=== PATIENT | male | born 1965 | race Caucasian/White ===

== ENCOUNTER 2016-12-22 23:06 | Emergency (ER) | payer SELFPAY ==
[2016-12-22] MEDS ORDERED: Aspirin 81 MG Tab.Chew PO ONE (23:14)
--- NOTE | 2016-12-22 23:37 | EDM.PDOC ---
ED HPI GENERAL MEDICAL PROBLEM - General Chief Complaint: Chest Pain Stated Complaint: CHEST PAIN Time Seen by Provider: 12/22/16 23:33 - History of Present Illness INITIAL COMMENTS - FREE TEXT/NARRATIVE: HISTORY AND PHYSICAL: History of present illness: Patient is a 51-year-old male history of coronary artery disease who presents with her chest pain is vaguely described without associated shortness of breath palpitations nausea or vomiting he 0th request of his he denies other concern. Review of systems: As per history of present illness and below otherwise all systems reviewed and negative. Past medical history: As per history of present illness and as reviewed below otherwise noncontributory. Surgical history: As per history of present illness and as reviewed below otherwise noncontributory. Social history: No reported history of drug or alcohol abuse. Family history: As per history of present illness and as reviewed below otherwise noncontributory. Physical exam: HEENT: Atraumatic, normocephalic, pupils reactive, negative for conjunctival pallor or scleral icterus, mucous membranes moist, throat clear, neck supple, nontender, trachea midline. Lungs: Clear to auscultation, breath sounds equal bilaterally, chest nontender. Heart: S1S2, regular, negative for clicks, rubs, or JVD. Abdomen: Soft, nondistended, nontender. Negative for masses or hepatosplenomegaly. Negative for costovertebral tenderness. Pelvis: Stable nontender. Genitourinary: Deferred. Rectal: Deferred. Extremities: Atraumatic, negative for cords or calf pain. Neurovascular unremarkable. Neuro: Awake, alert, oriented. Cranial nerves II through XII unremarkable. Cerebellum unremarkable. Motor and sensory unremarkable throughout. Exam nonfocal. Diagnostics: CBC CMP troponin PT/INR chest x-ray EKG Therapeutics: IV O2 monitor aspirin 324 mg by mouth Impression: #1 atypical chest pain #2 history coronary artery disease Definitive disposition and diagnosis as appropriate pending reevaluation and review of above. Middle Chest Pain Score (Numeric/FACES): 3 - Related Data Allergies Allergy/AdvReac Type Severity Reaction Status Date / Time acetaminophen [From Tylenol] Allergy Severe Anaphylactic Verified 12/02/15 21:12 Shock ibuprofen [From Advil] Allergy Rash Verified 12/02/15 21:12 naproxen Allergy Other Verified 12/02/15 21:12 NSAIDS (Non-Steroidal Allergy Swelling Verified 12/22/16 23:15 Anti-Inflamma beer Allergy hyperthermi Uncoded 12/02/15 21:13 a Home Meds: Home Meds Clopidogrel Bisulfate [Clopidogrel] 75 mg PO DAILY 11/13/14 [History] Metoprolol Succinate [Toprol XL] 50 mg PO DAILY 11/13/14 [History] atorvaSTATin [Lipitor] 20 mg PO DAILY 11/13/14 [History] metFORMIN [Glucophage XR] 500 mg PO BIDMEALS 11/13/14 [History] Aspirin [Ecotrin] 81 mg PO BID 12/22/16 [History] Lisinopril/Hydrochlorothiazide [Lisinopril-Hctz 20-25 mg Tab] 20 - 25 mg PO DAILY 12/22/16 [History] Past Medical History HEENT History: Reports: Impaired Vision Other HEENT History: wears glasses Cardiovascular History: Reports: High Cholesterol, Hypertension, MS Other Cardiovascular History: heart attack 4 years ago Respiratory History: Reports: None Gastrointestinal History: Reports: GERD Genitourinary History: Reports: None Neurological History: Reports: None Psychiatric History: Reports: None Endocrine/Metabolic History: Reports: Diabetes, Type II Dermatologic History: Reports: None - Infectious Disease History Infectious Disease History: Reports: Chicken Pox - Past Surgical History HEENT Surgical History: Reports: Tonsillectomy Cardiovascular Surgical History: Reports: Coronary Artery Stent Respiratory Surgical History: Reports: None GI Surgical History: Reports: None Musculoskeletal Surgical History: Reports: Shoulder Surgery Other Musculoskeletal Surgeries/Procedures:: tatanium palte on left leg Social & Family History - Family History Family Medical History: Noncontributory - Tobacco Use Smoking Status *Q: Current Every Day Smoker Years of Tobacco use: 36 Packs/Tins Daily: 1 Second Hand Smoke Exposure: Yes - Caffeine Use Caffeine Use: Reports: Coffee - Alcohol Use Days Per Week of Alcohol Use: 0 - Recreational Drug Use Recreational Drug Use: No Drug Use in Last 12 Months: No Recreational Drug Type: Reports: Marijuana/Hashish ED ROS GENERAL - Review of Systems Review Of Systems: ROS reveals no pertinent complaints other than HPI. ED EXAM, GENERAL - Physical Exam Exam: See Below (See dictation) Course - Vital Signs Text/Narrative:: Discussed with patient diagnostics offered admission for observation patient declines request discharge home and follow-up with Dr. Jordan Recorded V/S: Last Vital Signs Temp 36.6 C 12/22/16 23:09 Pulse 80 12/23/16 00:25 Resp 18 12/23/16 00:25 BP 147/92 H 12/23/16 00:25 Pulse Ox 98 12/23/16 00:25 - Orders/Labs/Meds Orders: Active Orders 24 hr Category Date Time Status EKG Documentation Completion [RC] STAT Care 12/22/16 23:10 Active Chest 1V Frontal [CR] Stat Exams 12/22/16 23:10 Taken Labs: Laboratory Tests 12/22/16 12/22/16 Range/Units 23:19 23:19 WBC 10.79 (4.0-11.0) K/uL RBC 4.94 (4.50-5.90) M/uL Hgb 16.2 (13.0-17.0) g/dL Hct 45.2 (38.0-50.0) % MCV 91.5 (80.0-98.0) fL MCH 32.8 H (27.0-32.0) pg MCHC 35.8 (31.0-37.0) g/dL RDW Std Deviation 42.7 (28.0-62.0) fl RDW Coeff of Garret 13 (11.0-15.0) % Plt Count 183 (150-400) K/uL MPV 10.70 (7.40-12.00) fL Neut % (Auto) 49.2 (48.0-80.0) % Lymph % (Auto) 40.1 H (16.0-40.0) % Banks % (Auto) 7.6 (0.0-15.0) % Eos % (Auto) 2.8 (0.0-7.0) % Baso % (Auto) 0.3 (0.0-1.5) % Neut # (Auto) 5.3 (1.4-5.7) K/uL Lymph # (Auto) 4.3 H (0.6-2.4) K/uL Banks # (Auto) 0.8 (0.0-0.8) K/uL Eos # (Auto) 0.3 (0.0-0.7) K/uL Baso # (Auto) 0.0 (0.0-0.1) K/uL Nucleated RBC % 0.0 /100WBC Nucleated RBCs # 0 K/uL Sodium 137 (136-146) mmol/L Potassium 3.4 L (3.5-5.1) mmol/L Chloride 102 (98-110) mmol/L Carbon Dioxide 26 (21-31) mmol/L BUN 12 (6.0-23.0) mg/dL Creatinine 1.4 (0.6-1.5) mg/dL Est Cr Clr Drug Dosing 75.78 mL/min Estimated GFR (MDRD) 53.2 ml/min Glucose 185 H (60-110) mg/dL Calcium 9.7 (8.8-10.8) mg/dL Total Bilirubin 0.5 (0.1-1.5) mg/dL AST 19 (5-40) IU/L ALT 25 (8-54) IU/L Alkaline Phosphatase 67 (40-150) CK-MB (CK-2) 3.6 (0-6.6) ng/ml Troponin I < 0.10 (0.0-0.29) NG/ML Total Protein 7.5 (6.0-8.0) g/dL Albumin 4.7 (3.5-5.0) g/dL Globulin 2.8 (2.0-3.5) g/dL Albumin/Globulin Ratio 1.7 (1.3-2.8) Meds: Medications Discontinued Medications Generic Name Dose Route Start Last Admin Trade Name Roderickq PRN Reason Stop Dose Admin Aspirin 324 mg 12/22/16 23:14 12/22/16 23:23 Aspirin PO 12/22/16 23:15 324 mg ONETIME ONE Administration Departure - Departure Time of Disposition: 01:30 Disposition: Home, Self-Care 01 Condition: Good Clinical Impression: Atypical chest pain - Discharge Information Instructions: Nonspecific Chest Pain Referrals: PCP,None [Primary Care Provider] - Forms: ED Department Discharge Care Plan Goals: followup with primary doctor in 1-2 days to return to ed for worsening condition as discussed. - My Orders Last 24 Hours: My Active Orders 12/22/16 23:10 EKG Documentation Completion [RC] STAT Chest 1V Frontal [CR] Stat - Assessment/Plan Last 24 Hours: My Active Orders 12/22/16 23:10 EKG Documentation Completion [RC] STAT Chest 1V Frontal [CR] Stat
[2016-12-22 23:49] LABS: CHLORIDE,CL 102 mmol/L (98-110); SODIUM,NA 137 mmol/L (136-146)
[2016-12-23 00:30] VITALS: BP 147/92
--- NOTE | 2016-12-23 11:03 | CR ---
EXAM DATE: 12/22/16 PATIENT'S AGE: 51 Patient: ASHA EDWARDS Facility: [place], [place] Site . Site : [id number] Study: XRay Chest [id number] 11:50:04 PM Ordering Physician: Doctor Wayne Final Report: INDICATION: chest pain TECHNIQUE: Chest 1 view. COMPARISON: None. FINDINGS: Cardiovascular and mediastinum: Heart size and vasculature are normal in caliber and appearance. Mediastinum is within normal limits. Lungs and pleural space: Lungs are clear. No sign of infiltrate or mass. No sign of pleural effusion. No pneumothorax. Bones and soft tissues: No significant findings. IMPRESSION: Unremarkable chest. Dictated by: Juan Antonio Holm MD @ 12/23/2016 00:02:04 (Electronic Signature) Report Signed by Proxy. PAPI
== END 2016-12-23 00:31 | disposition home or self-care (01) ==
LOC: MW.ED 23:06
DX: R07.89 Other chest pain (principal); I10 Essential (primary) hypertension; I25.10 Atherosclerotic heart disease of native coronary artery without angina pectoris; E78.00 Pure hypercholesterolemia, unspecified; K21.9 Gastro-esophageal reflux disease without esophagitis; E11.9 Type 2 diabetes mellitus without complications; F17.210 Nicotine dependence, cigarettes, uncomplicated; Z95.5 Presence of coronary angioplasty implant and graft; Z79.82 Long term (current) use of aspirin; Z79.84 Long term (current) use of oral hypoglycemic drugs; Z79.02 Long term (current) use of antithrombotics/antiplatelets; Z79.899 Other long term (current) drug therapy; Z88.6 Allergy status to analgesic agent; Z88.8 Allergy status to other drugs, medicaments and biological substances; Z91.048 Other nonmedicinal substance allergy status
CPT/HCPCS: 36415; 71010; 80053; 82553; 84484; 85025; 93005; 99285; A9270; 99284

== ENCOUNTER 2019-04-08 08:41 | Emergency (ER) | payer BC ==
--- NOTE | 2019-04-08 09:57 | EDM.PDOC ---
ED [facility] GENERAL MEDICAL PROBLEM - General Chief Complaint: General Stated Complaint: MEDICAL CLEARANCE Time Seen by Provider: 04/08/19 09:55 Source of Information: Reports: Patient History Limitations: Reports: No Limitations - History of Present Illness INITIAL COMMENTS - FREE TEXT/NARRATIVE: Patient is a 53-year-old male with coronary artery disease status post stent, diabetes, hypertension presenting with a chief complaint of being under arrest. Patient denies any complaints at this time. Patient is here for medical clearance only. Patient denies any chest pain, shortness of breath, nausea, vomiting, strokelike symptoms. Patient is not suicidal homicidal. Patient has no psychiatric history Pmhx: per HPI Pshx: Per HPI Family Hx: noncontributory Smoking history? Daily Etoh use? none Drug use? none Conference review of systems was performed and otherwise negative as noted per HPI I have reviewed the triage vital signs Const: Well nourished, well developed, appears stated age Eyes: PERRL, no conjunctival injection HENT: NCAT, Neck supple without meningismus CV: RRR, Warm, well-perfused extremities RESP: CTAB, Unlabored respiratory effort GI: soft, non-tender, non-distended, no masses MSK: No gross deformities appreciated Skin: Warm, dry. No rashes Neuro: Alert, college teacher II-XII grossly intact. Sensation and motor function of extremities grossly intact. Psych: Appropriate mood and affect Assessment and plan: Patient 53-year-old male with no medical complaints. Patient's blood pressure was noted to be elevated in the emergency department. However this will be an outpatient issue as he does not have any evidence of hypertensive emergency. Patient will be instructed to take medications as prescribed. Patient given return precautions. All questions addressed and answered. Patient agrees with plan. No contraindication for police custody at this time. - Related Data Allergies Allergy/AdvReac Type Severity Reaction Status Date / Time acetaminophen [From Tylenol] Allergy Severe Anaphylactic Verified 04/08/19 08:53 Shock ibuprofen [From Advil] Allergy Rash Verified 04/08/19 08:53 naproxen Allergy Other Verified 04/08/19 08:53 NSAIDS (Non-Steroidal Allergy Swelling Verified 04/08/19 08:53 Anti-Inflamma beer Allergy hyperthermi Uncoded 04/08/19 08:53 a Home Meds: Home Meds Clopidogrel Bisulfate [Clopidogrel] 75 mg PO DAILY 11/13/14 [History] atorvaSTATin [Lipitor] 20 mg PO DAILY 11/13/14 [History] metFORMIN [Glucophage XR] 500 mg PO BIDMEALS 11/13/14 [History] Aspirin [Ecotrin EC] 81 mg PO BID 12/22/16 [History] Lisinopril/Hydrochlorothiazide [Lisinopril-Hctz 20-25 mg Tab] 20 - 25 mg PO DAILY 12/22/16 [History] Past Medical History HEENT History: Reports: Impaired Vision Other HEENT History: wears glasses Cardiovascular History: Reports: High Cholesterol, Hypertension, [place], Stents Other Cardiovascular History: heart attack 01/27/2013 Respiratory History: Reports: None Gastrointestinal History: Reports: GERD Genitourinary History: Reports: None Neurological History: Reports: None Psychiatric History: Reports: None Endocrine/Metabolic History: Reports: Diabetes, Type II Dermatologic History: Reports: None - Infectious Disease History Infectious Disease History: Reports: Chicken Pox - Past Surgical History HEENT Surgical History: Reports: Tonsillectomy Cardiovascular Surgical History: Reports: Coronary Artery Stent Respiratory Surgical History: Reports: None GI Surgical History: Reports: None Musculoskeletal Surgical History: Reports: Shoulder Surgery Other Musculoskeletal Surgeries/Procedures:: titanium plate on left leg Social & Family History - Family History Family Medical History: Noncontributory - Tobacco Use Smoking Status *Q: Current Every Day Smoker Years of Tobacco use: 30 Packs/Tins Daily: 1 - Caffeine Use Caffeine Use: Reports: Coffee, Soda - Recreational Drug Use Recreational Drug Use: No ED ROS GENERAL - Review of Systems Review Of Systems: See Below ED EXAM, GENERAL - Physical Exam Exam: See Below Course - Vital Signs Last Recorded V/S: Last Vital Signs Temp 36.7 C 04/08/19 08:53 Pulse 97 04/08/19 08:53 Resp 16 04/08/19 08:53 BP 188/105 H 04/08/19 08:53 Pulse Ox 99 04/08/19 08:53 Departure - Departure Time of Disposition: 09:57 Disposition: Home, Self-Care 01 Clinical Impression: Encounter for medical screening examination - Discharge Information Referrals: Suman Green MD [Primary Care Provider] - Forms: ED Department Discharge Additional Instructions: The following information is given to patients seen in the emergency department who are being discharged to home. This information is to outline your options for follow-up care. We provide all patients seen in our emergency department with a follow-up referral. The need for follow-up, as well as the timing and circumstances, are variable depending upon the specifics of your emergency department visit. If you don't have a primary care physician on staff, we will provide you with a referral. We always advise you to contact your personal physician following an emergency department visit to inform them of the circumstance of the visit and for follow-up with them and/or the need for any referrals to a consulting specialist. The emergency department will also refer you to a specialist when appropriate. This referral assures that you have the opportunity for follow-up care with a specialist. All of these measure are taken in an effort to provide you with optimal care, which includes your follow-up. Under all circumstances we always encourage you to contact your private physician who remains a resource for coordinating your care. When calling for follow-up care, please make the office aware that this follow-up is from your recent emergency room visit. If for any reason you are refused follow-up, please contact the [facility] Emergency Department at and asked to speak to the emergency department charge nurse. Sepsis Event Note - Evaluation Sepsis Screening Result: No Definite Risk - Focused Exam Vital Signs: Vital Signs Temp Pulse Resp BP Pulse Ox 04/08/19 08:53 36.7 C 97 16 188/105 H 99 Date Exam was Performed: 04/08/19 Time Exam was Performed: 09:55
[2019-04-08 10:03] VITALS: BP 176/98; PULSE 79
== END 2019-04-08 10:03 | disposition home or self-care (01) ==
LOC: MW.ED 08:41
DX: Z02.89 Encounter for other administrative examinations (principal); E11.9 Type 2 diabetes mellitus without complications; I10 Essential (primary) hypertension; Z88.6 Allergy status to analgesic agent; Z79.84 Long term (current) use of oral hypoglycemic drugs; Z79.82 Long term (current) use of aspirin
CPT/HCPCS: 99282; 99283

== ENCOUNTER 2020-12-17 10:08 | Emergency (ER) | payer OTHER, BC ==
[2020-12-17] MEDS ORDERED: Sodium Chloride 0.9% 1,000 ML IV ONE (10:16)
[2020-12-17] MEDS ORDERED: Sodium Chloride 0.9% 2.5 ML Syringe FLUSH PRN (10:16)
[2020-12-17] MEDS ORDERED: Sodium Chloride 0.9% 10 ML Syringe FLUSH PRN (10:16)
[2020-12-17] MEDS ORDERED: Diphtheria,Pertussis(Acell),Tetanus Vaccine 0.5 ML Syringe IM ONE (10:16)
[2020-12-17] MEDS ORDERED: Morphine 4 MG/ML Syringe IVPUSH ONE (10:17)
[2020-12-17] MEDS ORDERED: Ondansetron 4 MG/2 ML SDV IVPUSH ONE (10:17)
[2020-12-17] MEDS ORDERED: Morphine 4 MG/ML VIAL ONE (10:18)
[2020-12-17] MEDS ORDERED: Ondansetron 4 MG/2 ML SDV ONE (10:18)
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
[2020-12-17] MEDS ORDERED: Morphine 4 MG/ML VIAL IVPUSH ONE (10:30)
[2020-12-17] MEDS ORDERED: fentaNYL 50 MCG/ML SDV IVPUSH ONE (10:40)
[2020-12-17 10:57] LABS: BLOOD UREA NITROGEN,BUN 12 mg/dL (7.0-18.0); CARBON DIOXIDE,CO2 29.2 mmol/L (21.0-32.0); CHLORIDE,CL 100 mmol/L (98-107); GLUCOSE RANDOM 280 mg/dL (74-106); LIPASE 114 U/L (73-393); POTASSIUM,K 3.7 mmol/L (3.5-5.1); SODIUM,NA 139 mmol/L (136-148)
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
[2020-12-17 11:48] VITALS: BP 151/92
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
[2020-12-17 11:51] VITALS: PULSE 84
[2020-12-17] MEDS ORDERED: Iopamidol 755 MG/ML 500 ML Multipack Bottle IVPUSH STA (12:04)
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
--- NOTE | 2020-12-17 12:47 | CT ---
INDICATION: Trauma. TECHNIQUE: Axial images. Sagittal and coronal reconstructions. 100 mL Isovue-370 IV. COMPARISON: None. FINDINGS: Normal heart size. No pericardial effusion. Atherosclerotic changes including coronary artery calcifications are noted. Normal caliber and intact thoracic aorta. No lymphadenopathy. No pulmonary contusion or laceration. No hemothorax or pneumothorax. No acute osseous abnormality. IMPRESSION: 1. No CT evidence of an acute traumatic injury involving the chest. 2. Nonacute findings as noted. Dictated by New Foley MD @ 12/17/2020 12:44:20 PM Please note that all CT scans at this facility use dose modulation, iterative reconstruction, and/or weight-based dosing when appropriate to reduce radiation dose to as low as reasonably achievable. Dictated by: New Foley MD @ 12/17/2020 12:44:41 (Electronically Signed)
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
== END 2020-12-17 11:25 ==
LOC: MW.ED 10:08
DX: S72.091A Other fracture of head and neck of right femur, initial encounter for closed fracture (principal); E78.00 Pure hypercholesterolemia, unspecified; I10 Essential (primary) hypertension; I25.2 Old myocardial infarction; K21.9 Gastro-esophageal reflux disease without esophagitis; E11.9 Type 2 diabetes mellitus without complications; Z95.5 Presence of coronary angioplasty implant and graft; Z79.82 Long term (current) use of aspirin; Z79.899 Other long term (current) drug therapy; Z23 Encounter for immunization; Z79.02 Long term (current) use of antithrombotics/antiplatelets; V49.40XA Driver injured in collision with unspecified motor vehicles in traffic accident, initial encounter; Y92.410 Unspecified street and highway as the place of occurrence of the external cause
CPT/HCPCS: 36415; 70450; 71045; 71260; 73552; 73590; 74177; 80053; 80307; 83690; 85025; 85610; 90471; 90715; 96374; 96375; 99285; J2270; J2405; J3010; J7030; Q9967; 72128-26; 72131-26

== ENCOUNTER 2021-03-22 05:57 | Emergency (ER) | payer BC, OTHER ==
[2021-03-22] MEDS ORDERED: oxyCODONE 5 MG/5 ML Cup PO ONE (06:31)
[2021-03-22] MEDS ORDERED: Cyclobenzaprine 5 MG Tab PO STA (06:33)
[2021-03-22 07:15] LABS: BLOOD UREA NITROGEN,BUN 13 mg/dL (7.0-18.0); CARBON DIOXIDE,CO2 24.8 mmol/L (21.0-32.0); CHLORIDE,CL 93 mmol/L (98-107); GLUCOSE RANDOM 199 mg/dL (74-106); SODIUM,NA 130 mmol/L (136-148)
[2021-03-22 07:27] LABS: CORONAVIRUS COVID-19 NAA POSITIVE (NEGATIVE); INFLUENZA A NAA NEGATIVE (NEGATIVE); INFLUENZA B NAA NEGATIVE (NEGATIVE)
[2021-03-22 08:04] VITALS: BP 165/97; PULSE 97
== END 2021-03-22 08:05 | disposition home or self-care (01) ==
LOC: MW.ED 05:57
DX: U07.1 COVID-19 (principal); E87.1 Hypo-osmolality and hyponatremia; M62.830 Muscle spasm of back; E78.00 Pure hypercholesterolemia, unspecified; I10 Essential (primary) hypertension; I25.2 Old myocardial infarction; K21.9 Gastro-esophageal reflux disease without esophagitis; E11.9 Type 2 diabetes mellitus without complications; Z88.6 Allergy status to analgesic agent; Z91.048 Other nonmedicinal substance allergy status; Z79.82 Long term (current) use of aspirin; Z79.899 Other long term (current) drug therapy; Z79.02 Long term (current) use of antithrombotics/antiplatelets
CPT/HCPCS: 0240U; 36415; 80053; 99283; A9270

== ENCOUNTER 2022-05-02 15:12 | Emergency (ER) | payer BC ==
[2022-05-02 16:22] VITALS: BP 126/72; PULSE 71
== END 2022-05-02 16:22 | disposition home or self-care (01) ==
LOC: MW.ED 15:12
DX: I77.819 Aortic ectasia, unspecified site (principal); E78.00 Pure hypercholesterolemia, unspecified; I10 Essential (primary) hypertension; I25.2 Old myocardial infarction; E11.9 Type 2 diabetes mellitus without complications; Z88.6 Allergy status to analgesic agent; Z91.018 Allergy to other foods; Z88.8 Allergy status to other drugs, medicaments and biological substances; Z79.02 Long term (current) use of antithrombotics/antiplatelets; Z79.899 Other long term (current) drug therapy; Z72.0 Tobacco use
CPT/HCPCS: 93005; 93010; 99284

== ENCOUNTER 2024-08-17 13:03 | Emergency (ER) | payer BC ==
[2024-08-17] MEDS: Nitroglycerin 0.4 MG Tab.SL SL PRN (13:23)
[2024-08-17 13:45] LABS: BASOPHILS ABSOLUTE AUTO 0.03 K/uL (0.00-0.20); BASOPHILS PERCENT AUTO 0.3 % (0.0-1.0); EOSINOPHILS ABSOLUTE AUTO 0.17 K/uL (0.00-0.45); EOSINOPHILS PERCENT AUTO 1.9 % (0.0-6.0); IMMATURE GRAN ABSOLUTE AUTO 0.02 K/uL (0.00-0.05); IMMATURE GRAN PERCENT AUTO 0.2 % (0.0-0.4); LYMPHOCYTES ABSOLUTE AUTO 2.08 K/uL (1.00-4.80); LYMPHOCYTES PERCENT AUTO 22.8 % (24.0-44.0); MEAN PLATELET VOLUME 10.4 fL (9.4-12.4); MONOCYTES ABSOLUTE AUTO 0.57 K/uL (0.00-0.80); MONOCYTES PERCENT AUTO 6.2 % (0.0-8.0); NEUTROPHILS ABSOLUTE AUTO 6.26 K/uL (1.80-7.70); NEUTROPHILS PERCENT AUTO 68.6 % (41.0-71.0); NRBC ABSOLUTE 0.00 K/uL (0.00-0.02); NRBC PERCENT 0.0 /100WBC (0.0-0.2); PLATELET COUNT,PLT 191 K/uL (150-400); RED BLOOD CELL COUNT 5.07 M/uL (4.52-5.90); WHITE BLOOD CELL COUNT,WBC 9.13 K/uL (3.9-11.3)
[2024-08-17] MEDS: Lisinopril/Hydrochlorothiazide 10-12.5 MG Tab PO ONE (13:51)
[2024-08-17 13:55] LABS: A/G RATIO 1.1 (0.9-1.6); ALANINE AMINOTRANSFERASE,ALT 24.0 IU/L (14-63); ASPARTATE AMNIOTRANSFERASE,AST 19.0 IU/L (15-37); BILIRUBIN TOTAL 0.4 mg/dL (0.2-1.0); BLOOD UREA NITROGEN,BUN 11.0 mg/dL (7.0-18.0); CARBON DIOXIDE,CO2 24.3 mmol/L (21.0-32.0); CHLORIDE,CL 100.0 mmol/L (98-107); CREATININE 1.3 mg/dL (0.8-1.3); EST CRCL DRUG DOSING (CG) 72.22 mL/min; GLUCOSE RANDOM 290.0 mg/dL (74-106); POTASSIUM,K 3.7 mmol/L (3.5-5.1); PROTEIN TOTAL,TP 7.0 g/dL (6.4-8.2); SODIUM,NA 137.0 mmol/L (136-148)
[2024-08-17 13:56] LABS: ESTIMATED GFR 63.0 mL/min (>60)
[2024-08-17] MEDS: Heparin Sodium 5,000 Units/ML Vial IVPUSH ONE (14:25)
[2024-08-17] MEDS: Heparin Sodium/0.45% NaCl 25,000 UNITS/250 ML BAG IV SCH (14:26)
[2024-08-17 14:38] VITALS: PULSE 89
[2024-08-17 15:05] VITALS: BP 139/97
== END 2024-08-17 15:04 ==
LOC: MW.ED 13:03
DX: I21.4 Non-ST elevation (NSTEMI) myocardial infarction (principal); I10 Essential (primary) hypertension; I25.2 Old myocardial infarction; E11.9 Type 2 diabetes mellitus without complications; Z88.8 Allergy status to other drugs, medicaments and biological substances; Z88.6 Allergy status to analgesic agent; Z79.899 Other long term (current) drug therapy
CPT/HCPCS: 36415; 71045; 80053; 84484; 85025; 85379; 85730; 93005; 96374; 96375; 99285; A9270; J1644; 93010